=== PATIENT | female | born 1985 | race African-American/Black ===

== ENCOUNTER 2017-01-15 16:55 | Emergency (ER) | payer OTHER ==
[~2017-01-15 16:55] MED LIST: ALBUTEROL17 GM INH; AMOXICILLIN PO; LAMISIL250 MG PO; MEDROL PO; TAMIFLU75 MG PO; ZITHROMAX PO
== END 2017-01-15 19:16 | disposition home or self-care (01) ==
LOC: CED 16:55 → CFTX 16:55
DX: S60.562A Insect bite (nonvenomous) of left hand, initial encounter (principal); Z79.899 Other long term (current) drug therapy; Z98.890 Other specified postprocedural states; W57.XXXA Bitten or stung by nonvenomous insect and other nonvenomous arthropods, initial encounter; Y92.009 Unspecified place in unspecified non-institutional (private) residence as the place of occurrence of the external cause
CPT/HCPCS: 99281